=== PATIENT | female | born 1955 | race Caucasian/White ===

== ENCOUNTER 2019-06-18 17:35 | Emergency (ER) | payer OTHER ==
--- NOTE | 2019-06-18 17:49 | PDOC ---
Rapid Medical Evaluation Chief Complaint: Injury Time Seen by Provider: 06/18/19 17:47 Medical Evaluation: 06/18/19 17:48 Pt c/o: fell down stairs, twisting left foot Pt on brief exam: tenderness to lat aspect aspect of left mallelolus Pt ordered for: foot/ankle xray pt to proceed to the ED Discharge Disposition - Diagnosis Foot injury - Referrals - Patient Instructions - Post Discharge Activity
[2019-06-18 18:23] VITALS: BP 127/56; BMI 18.3
--- NOTE | 2019-06-18 20:02 | PDOC ---
History of Present Illness - General Chief Complaint: Injury Stated Complaint: FALL LEFT FOOT INJURY Time Seen by Provider: 06/18/19 17:47 History Source: Patient Exam Limitations: No Limitations - History of Present Illness Initial Comments: 06/18/19 19:57 HISTORY OF PRESENT ILLNESS: 63-year-old woman with a past medical history of hyperlipidemia presents emergency department for evaluation of left ankle pain status post slip and fall down 15 wooden steps. Patient reports she struck her ankle on the way down as well as her left elbow. She denies any head trauma or loss of consciousness. Patient has been unable to bear weight on left ankle since the incident happened approximately 3 hours ago. No recent travel or sick contacts. PAST MEDICAL HISTORY: See HPI SURGICAL HISTORY: Denies ALLERGIES: No known drug allergies REVIEW OF SYSTEMS General/Constitutional: Denies fever or chills. Denies weakness, weight change. HEENT: Denies change in vision. Denies ear pain or discharge. Denies sore throat. Cardiovascular: Denies chest pain or shortness of breath. Respiratory: Denies cough, wheezing, or hemoptysis. Gastrointestinal: Denies nausea, vomiting, diarrhea or constipation. Denies rectal bleeding. Genitourinary: Denies dysuria, frequency, or change in urination. Musculoskeletal: See HPI Skin and breasts: Denies rash or easy bruising. Neurologic: Denies headache, vertigo, loss of consciousness, or loss of sensation. Psychiatric: Denies depression or anxiety. Endocrine: Denies increased thirst. Denies abnormal weight change. Hematologic/Lymphatic: Denies anemia, easy bleeding, or history of blood clots. Allergic/Immunologic: Denies hives or skin allergy. Denies latex allergy. PHYSICAL EXAM General Appearance: Well-appearing, appropriately dressed. No apparent distress , no intoxication. HEENT: EOMI, PERRLA, normal ENT inspection, normal voice, TMs normal, pharynx normal. No conjunctival pallor. No photophobia, scleral icterus. No hemotympanum present. No evidence of septal hematomas noted. Neck: Supple. Trachea midline. No tenderness, rigidity, carotid bruit, stridor , lymphadenopathy, or thyromegaly. Respiratory/Chest: Lungs CTAB. No shortness of breath, chest tenderness, respiratory distress, accessory muscle use. No crackles, rales, rhonchi, stridor , wheezing, dullness Cardiovascular: RRR. S1, S2. No JVD, murmur, bradycardia, tachycardia. Vascular Pulses: Dorsalis-Pedis (R): 2+, Dorsalis-Pedis (L): 2+ Gastrointestinal/Abdominal: Normal bowel sounds. Abdomen soft, non-distended. No tenderness or rebound tenderness. No organomegaly, pulsatile mass, guarding, hernia, hepatomegaly, splenomegaly. Lymphatic: No adenopathy, tenderness. Musculoskeletal/Extremities: Left ankle tender to palpation over the lateral malleolus. Tenderness to the dorsum of the left foot over the third fourth and fifth metatarsals. Tenderness to the base of the foot over the first and second metatarsals. Unable to flex or dorsiflex ankle against resistance. Ecchymosis present to the dorsum of the left foot as well as the plantar surface of the left foot. No tenderness upon palpation of the left knee or calf. Remainder of orthopedic exam is within normal limits. Integumentary: Appropriate color, dry, warm. No cyanosis, erythema, jaundice or rash Neurologic: wire hanger II-XII intact. Fully oriented, alert. Appropriate mood/affect. Motor strength 5/5. No appreciable EOM palsy, facial droop or sensory deficit. Past History - Past Medical History Allergies/Adverse Reactions: Allergies Allergy/AdvReac Type Severity Reaction Status Date / Time No Known Allergies Allergy Verified 06/18/19 17:50 COPD: No - Psycho Social/Smoking Cessation Hx Smoking History: Former smoker Have you smoked in the past 12 months: No If you are a former smoker, when did you quit?: 2010 Information on smoking cessation initiated: No *Physical Exam - Vital Signs Last Vital Signs Temp Pulse Resp BP Pulse Ox 127/56 L 99 06/18/19 17:50 06/18/19 17:50 Procedures - Consent Consent obtained: Verbal, From Patient - Splinting Splint Location: Left: Ankle Pre-Proc Neuro Vasc Exam: normal Hand-Made Type: orthoglass Splint Type: Yes: Sugar Tong (left leg), Short Leg (Left leg) Post-Proc Neuro Vasc Exam: normal, unchanged from pre-exam Bigg Bandage: 3" Sling: No Complications: No Progress: 06/18/19 20:02 Patient tolerated well. Medical Decision Making - Medical Decision Making 06/18/19 19:59 A/P: 63-year-old woman with left ankle pain status post fall down stairs. No cervical spinal tenderness Neurologic exam is within normal limits No hemotympanum present No evidence of septal hematoma No bony tenderness upon palpation of the cervical, thoracic and lumbar spine. No crepitus, deformity or step-off is appreciated. Tenderness to left ankle over the lateral malleolus Tenderness to the dorsum of the left foot over the third fourth and fifth metatarsals. Ecchymosis present. Tenderness to the plantar surface of the left foot over the first and second metatarsals. ecchymosis present. X-rays as read by me: Mortise is intact on the left ankle. No acute fractures or dislocations are present. Questionable old avulsion fracture to the distal fibula versus bone island. Given severity of the patient's pain I will splint with a sugar tong splint and referred to orthopedics for continued evaluation. Discharge home I discussed the physical exam findings, ancillary test results and final diagnoses with the patient. I answered all of the patient's questions. The patient was satisfied with the care received and felt comfortable with the discharge plan and treatment plan. The patient will call their primary care physician within 24 hours to arrange follow-up and will return to the Emergency Department with any new, persistent or worsening symptoms. Discharge - Discharge Information Problems reviewed: Yes Clinical Impression/Diagnosis: Left foot pain Ankle pain, left Qualifiers: Chronicity: acute Qualified Code(s): M25.572 - Pain in left ankle and joints of left foot Condition: Stable Disposition: HOME - Admission No - Follow up/Referral Referrals: Elfego Grant [Primary Care Provider] - Forest Marcelo MD [Staff Physician] - - Patient Discharge Instructions Additional Instructions: You be given a referral for an orthopedist. Call to schedule appointment for reevaluation of your knee pain. Your emergency department visit is incomplete until you follow-up with your regular doctor. Take Tylenol 2-500 mg tablets every 6 hours as needed for pain. Take Motrin 3-200 mg tablets every 6 hours as needed for pain. These medications do not require a prescription as they are [id number]. Apply ice to your ankle to help relieve pain. Do not leave ice on for more than 20 minutes at a time. Return to the emergency department for numbness or tingling to the left foot or ankle, discoloration of your left toes, severe pain worse in the initial injury or any new or worsening symptoms. Thank you very much for choosing us to provide your emergent health care needs. - Post Discharge Activity
== END 2019-06-18 20:29 | disposition home or self-care (01) ==
LOC: JERFT 17:35
PROC: 2W3RX1Z Immobilization of Left Lower Leg using Splint (ICD-10-PCS; principal; 2019-06-18)
DX: M25.572 Pain in left ankle and joints of left foot (principal); M25.522 Pain in left elbow; W10.8XXA Fall (on) (from) other stairs and steps, initial encounter; Y93.89 Activity, other specified; Y92.018 Other place in single-family (private) house as the place of occurrence of the external cause; Y99.8 Other external cause status; E78.5 Hyperlipidemia, unspecified
CPT/HCPCS: 73610-TC-LT-FY; 73630-TC-LT; 99282-25